=== PATIENT | female | born 1960 | race Caucasian/White ===

== ENCOUNTER → 2019-10-24 11:14 | Outpatient (CLI) | payer MEDICARE, SELFPAY ==
--- NOTE | 2019-10-24 11:16 | DI.MG.S_ITS ---
BILATERAL DIGITAL SCREENING MAMMOGRAM 3D/2D WITH CAD: 10/24/2019 CLINICAL: Routine screening. Comparison is made to exams dated: 06/24/2015 mammogram - [facility], 01/04/2010 mammogram, and 06/06/2008 mammogram - [facility]. There are scattered fibroglandular elements in both breasts. Current study was also evaluated with a Computer Aided Detection (CAD) system. No significant masses, calcifications, or other findings are seen in either breast. There has been no significant interval change. IMPRESSION: NEGATIVE There is no mammographic evidence of malignancy. A 1 year screening mammogram is recommended. This exam was interpreted at Station ID: [id number]. NOTE: For mammograms, a report in lay terms will be sent to the patient. Approximately 15% of breast malignancies will not be visualized mammographically. In the management of a palpable breast mass, a negative mammogram must not discourage biopsy of a clinically suspicious lesion. Electronically Signed By: Milli camara/tino:10/28/2019 21:35:42 letter sent: Normal Exam ACR BI-RADS Category 1: Negative [id number]
== END ==
PROVIDERS: PCP Nurse Practitioner; Referring Provider Nurse Practitioner; Visit Provider Nurse Practitioner
DX: Z12.31 Encounter for screening mammogram for malignant neoplasm of breast (principal)
CPT/HCPCS: 77063; 77067

== ENCOUNTER 2020-12-14 11:15 | Outpatient (RCR) | payer MEDICARE, SELFPAY ==
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
== END 2020-12-15 08:37 | disposition home or self-care (01) ==
LOC: PHYS 11:15
PROVIDERS: PCP Nurse Practitioner; Referring Provider Nurse Practitioner; Visit Provider Nurse Practitioner
DX: M62.89 Other specified disorders of muscle (principal); N81.10 Cystocele, unspecified; Z62.810 Personal history of physical and sexual abuse in childhood
CPT/HCPCS: 97110; 97112; 97162

== ENCOUNTER → 2021-03-18 10:02 | Outpatient (CLI) | payer MEDICARE, SELFPAY ==
--- NOTE | 2021-03-18 10:03 | DI.US.S_ITS ---
PROCEDURE: US PELVIC COMPLETE INDICATIONS: RIGHT PELVIC PAIN TECHNIQUE: Real-time scanning was performed of the pelvic organs, with image documentation. Additional endovaginal scanning was necessary due to incomplete visualization of the adnexal and endometrial structures by transabdominal scanning. COMPARISON: [facility], CT, CT ABD PELVIS W CON, 09/08/2015, 16:24. FINDINGS: Uterus: Surgically absent. Ovaries: The ovaries were not well seen due to extensive bowel gas. No definite adnexal mass visualized. Other: No free fluid visualized within the pelvis. IMPRESSION: 1. Limited study due to extensive bowel gas. 2. Ovaries not well visualized. No definite adnexal masses identified. Dictated by: Ramos Gallegos M.D. on 03/18/2021 at 15:27 Approved by: Ramos Gallegos M.D. on 03/18/2021 at 15:29
== END ==
PROVIDERS: PCP Nurse Practitioner; Referring Provider Obstetrics & Gynecology; Visit Provider Obstetrics & Gynecology
DX: R10.2 Pelvic and perineal pain (principal)
CPT/HCPCS: 76830; 76856

== ENCOUNTER → 2021-04-27 09:02 | Outpatient (CLI) | payer MEDICARE, SELFPAY ==
--- NOTE | 2021-04-27 09:40 | DI.CT.S_ITS ---
PROCEDURE: CT ABDOMEN PELVIS W CON INDICATIONS: pelvic Pain TECHNIQUE: After the administration of oral and IV contrast, axial sections were acquired from the lung bases to the pubic symphysis. Coronal and sagittal reformats were performed. For radiation dose reduction, the following was used: automated exposure control, adjustment of mA and/or kV according to patient size. COMPARISON: [facility], CT, CT ABD PELVIS W CON, 09/08/2015, 16:24. [facility], US, US PELVIC COMPLETE, 03/18/2021, 10:35. FINDINGS: Lower thorax: The lung bases are clear. Heart size normal. No hiatal hernia. Liver: The liver is diffusely decreased in attenuation without focal mass lesion. Biliary system: Solitary hyperdensity in the gallbladder may reflect small cholelithiasis. No CT evidence of acute cholecystitis. No intra or extrahepatic bile duct dilatation. Pancreas: Unremarkable without mass or inflammation evident. Spleen: Normal in size and density. Adrenals: Normal morphology and density. Reproductive system: Hysterectomy Urinary system: Normal renal size and attenuation. No renal calculi, hydronephrosis, or solid mass present. Urinary bladder unremarkable. Gastrointestinal system: The bowel appears unremarkable with no evidence of bowel obstruction or inflammation. The stomach appears unremarkable. Moderate fecal debris present throughout the colon. Multiple diverticula arise from the sigmoid colon without evidence of diverticulitis. Appendix: Normal appendix identified. No evidence of appendicitis. Peritoneal spaces: No mesenteric or retroperitoneal adenopathy. No free air. No free fluid. Vasculature: The IVC, aorta and iliac vasculature are unremarkable. Musculoskeletal: Normal bone mineralization. No acute fractures. Abdominal wall intact without evidence of ventral or inguinal hernias. L4-5 and L5-S1 discectomy and fusion with posterior cassia and screw instrumentation. IMPRESSION: 1. No acute CT findings in the abdomen or pelvis. 2. Diverticulosis without evidence of diverticulitis. 3. Possible cholelithiasis without CT evidence of acute cholecystitis 4. Hepatic fatty infiltration, hysterectomy, lower lumbar spine discectomy and fusion Approved by: King Reyna M.D. on 04/27/2021 at 10:13
== END ==
PROVIDERS: PCP Nurse Practitioner; Referring Provider Obstetrics & Gynecology; Visit Provider Obstetrics & Gynecology
DX: R10.2 Pelvic and perineal pain (principal); K57.30 Diverticulosis of large intestine without perforation or abscess without bleeding; K76.0 Fatty (change of) liver, not elsewhere classified; Z90.710 Acquired absence of both cervix and uterus; Z98.1 Arthrodesis status
CPT/HCPCS: 74177; Q9967